=== PATIENT | female | born 2000 | race Caucasian/White ===

== ENCOUNTER 2023-08-05 08:04 | Outpatient (CLI) | payer BC | END 2023-08-05 23:59 | disposition home or self-care (01) | LOC: RAD 08:04 | PROVIDERS: ATTEND Family Medicine | DX: R10.31 Right lower quadrant pain (principal); I25.10 Atherosclerotic heart disease of native coronary artery without angina pectoris; M47.817 Spondylosis without myelopathy or radiculopathy, lumbosacral region; R10.2 Pelvic and perineal pain | CPT/HCPCS: 36415; 74176; 84702 ==